=== PATIENT | male | born 1950 | race Caucasian/White ===

== ENCOUNTER → 2019-11-11 | Outpatient (REF) | payer MEDICARE, OTHER | LOC: M LAB REF 17:46 | PROVIDERS: ATTEND Dermatology | DX: C44.310 Basal cell carcinoma of skin of unspecified parts of face (principal); L57.0 Actinic keratosis ==

== ENCOUNTER → 2019-12-17 | Outpatient (REF) | payer MEDICARE, OTHER | LOC: M LAB REF 14:26 | PROVIDERS: ATTEND Dermatology | DX: C44.310 Basal cell carcinoma of skin of unspecified parts of face (principal) ==